=== PATIENT | female | born 1930 | race Caucasian/White ===

== ENCOUNTER 2018-08-03 20:31 | Emergency (ER) | payer OTHER ==
[2018-08-03 20:53] VITALS: BP 141/52; PULSE 70; TEMP 98; BMI 33.6
[2018-08-03] MEDS ORDERED: COLLAGENASE CLOSTRIDIUM HIST. 30 GRAMS TUBE TP ONE (21:59)
--- NOTE | 2018-08-03 22:10 | PDOC ---
History of Present Illness - General Chief Complaint: Wound Stated Complaint: OPEN WOUNDS Time Seen by Provider: 08/03/18 21:38 - History of Present Illness Initial Comments: 08/03/18 22:21 The patient is an 88 year old with a history of HTN, HLD, chronic venous stasis ulcers who presents for a wound dressing change. The patient is accompanied by family who assist in providing the history. They note that the patient is currently followed in wound clinic for chronic left lower extremity venous stasis ulcers. She is currently on levaquin and clindamycin for antibiotic coverage. They report that the patient is supposed to have her dressing changed daily, but due to visiting nurse order issues, the patient has not had a dressing change in 2 days prompting their presentation to the ED for further evaluation. They note that they have a dressing change scheduled for tomorrow. They otherwise deny any fevers, chills, SOB, chest pain, nausea, vomiting, abdominal pain, or changes with urination or bowel movements. Past History - Past Medical History Allergies/Adverse Reactions: Allergies Allergy/AdvReac Type Severity Reaction Status Date / Time acetaminophen Allergy Verified 08/03/18 22:16 [From Darvocet-N 100] cephalexin monohydrate Allergy Verified 08/03/18 22:16 [From Keflet] propoxyphene napsylate Allergy Verified 08/03/18 22:16 [From Darvocet-N 100] vancomycin Allergy Verified 08/03/18 22:16 Home Medications: Ambulatory Orders Cholecalciferol (Vitamin D3) [Vitamin D3 -] 1,000 unit PO DAILY #0 tab 07/02/13 Nifedipine ER [Procardia XL -] 30 mg PO DAILY #0 tab.er.24 07/02/13 Pravastatin Sodium [Pravachol -] 20 mg PO HS #0 tablet 07/02/13 Acetaminophen [Tylenol] 500 mg PO DAILY 05/26/16 Vit A/Vit C/Vit E/Zinc/Copper [Preservision Areds Softgel] 1 each PO DAILY 05/26 Levothyroxine [Synthroid -] 75 mcg PO DAILY@0700 04/09/18 Furosemide [Lasix -] 40 mg PO DAILY 04/16/18 Irbesartan [Avapro (Nf) -] 300 mg PO DAILY 04/16/18 hydrALAZINE HCL [Apresoline -] 25 mg PO TID 04/16/18 Iron 18 mg PO DAILY 04/17/18 Docusate Sodium [Colace -] 100 mg PO TID capsule 04/23/18 Clindamycin [Cleocin -] 300 mg PO TID #21 capsule 07/29/18 Lactobacillus Acidophilus [Bacid -] 1 each PO DAILY #30 capsule 07/29/18 levoFLOXacin [Levaquin -] 250 mg PO DAILY #7 tablet 07/29/18 Anemia: No Asthma: No Cancer: No Cardiac Disorders: No CVA: No COPD: No CHF: No Dementia: No Diabetes: No GI Disorders: No Disorders: No HTN: Yes Hypercholesterolemia: Yes Liver Disease: No Seizures: No Thyroid Disease: Yes - Surgical History Abdominal Surgery: Yes (HERNIA REPAIR umbulical) Appendectomy: No Cardiac Surgery: No Cholecystectomy: Yes Lung Surgery: No Neurologic Surgery: No Orthopedic Surgery: No - Immunization History Immunization Up to Date: Yes - Suicide/Smoking/Psychosocial Hx Smoking Status: No Smoking History: Never smoked Have you smoked in the past 12 months: No Number of Cigarettes Smoked Daily: 0 Information on smoking cessation initiated: No Hx Alcohol Use: No Drug/Substance Use Hx: No Substance Use Type: None Hx Substance Use Treatment: No Review of Systems - Review of Systems Comments:: 08/03/18 22:50 Constitutional: No fevers, chills, fatigue, malaise HEENT: No Rhinorrhea, nasal congestion, visual changes Cardiovascular: No chest pain, syncope, palpitations, lightheadedness Respiratory: No Cough, SOB, Hemoptysis, Gastrointestinal: No Abdominal pain, Nausea, Vomiting, Constipation, Diarrhea, Melena Genitourinary: No Dysuria, Frequency, Urgency, Hesitancy, Hematuria, Flank pain Musculoskeletal: No Myalgia, arthralgia Skin: Left Lower Extremity wound. No rashes, itching, bruising, pallor Neurologic: No Headache, Dizziness, Numbness, Weakness, or Tingling Psychiatric: No Hallucinations. No SI or HI *Physical Exam - Vital Signs Last Vital Signs Temp Pulse Resp BP Pulse Ox 98.0 F 70 16 141/52 L 100 08/03/18 20:50 08/03/18 20:50 08/03/18 20:50 08/03/18 20:50 08/03/18 20:50 - Physical Exam Comments: 08/03/18 22:51 General Appearance: Nourished. No Apparent Distress HEENT: No Pharyngeal Erythema, Tonsillar Exudate, Tonsillar Erythema Neck: No Cervical Lymphadenopathy Respiratory/Chest: Lungs Clear, Normal Breath Sounds. No Crackles, Rales, Rhonchi, Wheezing Cardiovascular: Regular Rhythm, Regular Rate. No Murmur, Gallops, Rubs Gastrointestinal/Abdominal: Normal Bowel Sounds, Soft. No Guarding, Rebound, Tenderness Musculoskeletal: No CVA Tenderness Extremity: 2 well healing left lower extremity venous stasis ulcers. 3+ pitting edema on exam bilaterally. Normal Capillary Refill Integumentary: Normal Color, Dry, Warm Neurologic: Fully Oriented, Alert, Normal Mood/Affect, Normal Response, Medical Decision Making - Medical Decision Making 08/03/18 22:53 The patient is an 88 year old with a history of HTN, HLD, chronic venous stasis ulcers who presents for a wound dressing change. The patient does not appear to have systemic signs of infection and is currently on antibiotics. We changed the patient's dressing with normal saline, santyl, and rosamaria wrap. We are comfortable discharging the patient home with vascular follow up. We discussed the plan and return precautions with the patient and her family who voiced understanding and is agreeable with the plan. *DC/Admit/Observation/Transfer Diagnosis at time of Disposition: Dressing change - Discharge Dispostion Disposition: HOME Condition at time of disposition: Stable Decision to Admit order: No - Referrals Referrals: Edward Guadalupe MD [Primary Care Provider] - Khanh Dougherty MD [Staff Physician] - - Patient Instructions Printed Discharge Instructions: Venous Stasis Ulcer Additional Instructions: Please return to the ER if you experience concerning or worsening symptoms including worsening difficulty breathing, weakness, or chest pain. Please call to schedule a follow up appointment with your Vascular Surgeon within 2-3 days to discuss your ER visit and further management of your symptoms. - Post Discharge Activity
--- NOTE | 2018-08-03 22:29 | PDOC ---
Attending Attestation - Resident Resident Name: Julian Florian - ED Attending Attestation I have performed the following: I have examined & evaluated the patient, The case was reviewed & discussed with the resident, I agree w/resident's findings & plan - Medical Decision Making 08/03/18 22:55 Wounds on the lower leg are healing well. We placed Santyl in the wounds and redressed the wounds. Pt' sexam is normal. VNS will be seeing her tomorrow. Pt is afebrile. Eating and sleeping well. She is alert and awake and in no distress. Pt is stable for discharge. <Patricia Pena - Last Filed: 08/03/18 22:55> - HPI HPI: 08/03/18 22:29 The patient is a 88 year old female, with a significant past medical history of HTN, hypercholesterolemia, thyroid disease, osteoporosis, and vascular insufficiency, who presents to the emergency department for, lower extremity wound dressing change. Patient has chronic wounds on her left lower extremity which she has a visiting nurse come to her come for dressing changes. She notes that for unknown reasoning her visiting nurse has not come in for the past 48 hours. Her wounds are currently being followed up by ID and wound clinic. She has an appointment with Dr. Dougherty tomorrow. She denies recent fevers, chills, headache or dizziness. She denies recent nausea, vomit, diarrhea or constipation. She denies recent dysuria, frequency, urgency or hematuria. She denies recent chest pain or shortness of breath. Allergies: Refer to nursing notes. Surgical History: hernia repair, cholecystectomy. Primary Care Physician: Dr. Guadalupe - Physicial Exam PE: 08/03/18 22:57 GENERAL: Awake, alert, and fully oriented, in no acute distress HEAD: No signs of trauma EYES: PERRLA, EOMI, sclera anicteric, conjunctiva clear ENT: Auricles normal inspection, hearing grossly normal, nares patent, oropharynx clear without exudates. Moist mucosa NECK: Normal ROM, supple, no lymphadenopathy, JVD, or masses LUNGS: Breath sounds equal, clear to auscultation bilaterally. No wheezes, and no crackles HEART: Regular rate and rhythm, normal S1 and S2, no murmurs, rubs or gallops ABDOMEN: Soft, nontender, normoactive bowel sounds. No guarding, no rebound. No masses +EXTREMITIES: 2+ bilateral pitting edema with erythema. Open wound to the left lower extremity medial distal and posterior distal aspects. Normal range of motion. NEUROLOGICAL: Cranial nerves II through XII grossly intact. Normal speech. <Dmitri Fisher - Last Filed: 08/03/18 22:57> Attestations - Attestations 08/03/18 22:29 Documentation prepared by Dmitri Fisher, acting as medical concierge for Patricia Pena MD. <Dmitri Fisher - Last Filed: 08/03/18 22:57>
== END 2018-08-03 23:30 | disposition home or self-care (01) ==
LOC: JER 20:31 → JERFT 20:31 → JER 23:30
DX: I83.019 Varicose veins of right lower extremity with ulcer of unspecified site (principal); Z48.00 Encounter for change or removal of nonsurgical wound dressing; I87.2 Venous insufficiency (chronic) (peripheral); I10 Essential (primary) hypertension; E78.00 Pure hypercholesterolemia, unspecified; E03.9 Hypothyroidism, unspecified
CPT/HCPCS: 99283-25

== ENCOUNTER 2018-11-21 14:23 | Inpatient (IN) | payer OTHER ==
--- NOTE | 2018-11-21 14:34 | PDOC ---
Rapid Medical Evaluation Chief Complaint: Wound Time Seen by Provider: 11/21/18 14:31 Medical Evaluation: Allergies Allergy/AdvReac Type Severity Reaction Status Date / Time acetaminophen Allergy Verified 08/03/18 22:16 [From Darvocet-N 100] cephalexin monohydrate Allergy Verified 08/03/18 22:16 [From Keflet] propoxyphene napsylate Allergy Verified 08/03/18 22:16 [From Darvocet-N 100] vancomycin Allergy Verified 08/03/18 22:16 11/21/18 14:31I have performed a brief in-person evaluation of this patient. The patient presents with a chief complaint of:sent by wound care nurse for fever and wound concerns Pertinent physical exam findings:NAD I have ordered the following:L foot x-rays labs The patient will proceed to the ED for further evaluation.
[2018-11-21 15:21] LABS: VENOUS PC02 31.4 mmHg (38-52); VENOUS PH 7.44 (7.32-7.42)
[2018-11-21 15:24] LABS: BASO % 0.3 % (0-2.0); EOS % 0.8 % (0-4.5); HEMATOCRIT 28.1 % (32.4-45.2); HEMOGLOBIN 9.2 GM/dL (10.7-15.3); LYMPH % 10.6 % (8-40); MCH 26.3 pg (25.7-33.7); MCHC 32.9 g/dl (32.0-36.0); MEAN PLT VOLUME 8.1 fl (7.5-11.1); MONO % 7.1 % (3.8-10.2); NEUT % 81.2 % (42.8-82.8); PLATELET COUNT 325 K/MM3 (134-434); RBC 3.51 M/mm3 (3.60-5.2); RDW 16.2 % (11.6-15.6); WHITE BLOOD COUNT 13.5 K/mm3 (4.0-10.0)
[2018-11-21 15:36] LABS: INR 1.17 (0.83-1.09); PROTHROMBIN TIME (PATIENT) 13.8 SEC (9.7-13.0)
[2018-11-21 15:39] LABS: ACTIVATED PTT 30.3 SECONDS (25.2-36.5)
[2018-11-21 15:51] LABS: ALBUMIN 2.9 g/dl (3.4-5.0); ALK PHOS 93 U/L (45-117); ANION GAP 9 MMOL/L (8-16); BILIRUBIN,TOTAL 0.5 mg/dL (0.2-1); BLOOD UREA NITROGEN 50 mg/dL (7-18); CALCIUM 9.2 mg/dL (8.5-10.1); CHLORIDE 108 mmol/L (98-107); CO2 23 mmol/L (21-32); CREATININE 1.2 mg/dL (0.55-1.3); GLUCOSE,RANDOM 123 mg/dL (74-106); POTASSIUM 3.9 mmol/L (3.5-5.1); SGOT/AST 14 U/L (15-37); SGPT/ALT 16 U/L (13-61); SODIUM 140 mmol/L (136-145); TOT PROT 6.8 g/dl (6.4-8.2)
--- NOTE | 2018-11-21 16:55 | PDOC ---
History of Present Illness - General Chief Complaint: Wound Stated Complaint: TEMP / WOUND CARE Time Seen by Provider: 11/21/18 14:31 - History of Present Illness Initial Comments: Marcela Burrell is an 88y woman with a PMH of HTN, HLD, BLE venous stasis s/p LLE angioplasty and stent with chronic LLE venous stasis ulcers who was sent to the ED by her home nurse due to concern for cellulitis overlying her LLE wounds. Her daughter is at bedside to provide additional information. Per the patient and her daughter, the visiting nurse comes every other day to help with dressing changes. The wounds have had increased drainage recently, and there has been worsening redness surrounding them. Today, the nurse noted a fever to 100.4 and felt that Ms Burrell needed to come to the hospital. They report that Ms Burrell follows with Dr Dougherty for chronic LLE wounds. She has debridement roughly monthly, and she has a visiting nurse every other day to assist with wound care between appointments at wound clinic. She also reports a recent LLE angioplasty and stent placement at [facility]. Ms Burrell has not been on any antibiotics recently, though she was hospitalized for cellulitis in March and treated again in July. Other than the fever today and her chronic conditions, she has been feeling well. Past History - Past Medical History Allergies/Adverse Reactions: Allergies Allergy/AdvReac Type Severity Reaction Status Date / Time acetaminophen Allergy Verified 11/21/18 14:31 [From Darvocet-N 100] cephalexin monohydrate Allergy Verified 11/21/18 14:31 [From Keflet] propoxyphene napsylate Allergy Verified 11/21/18 14:31 [From Darvocet-N 100] vancomycin Allergy Verified 11/21/18 14:31 Home Medications: Ambulatory Orders Cholecalciferol (Vitamin D3) [Vitamin D3 -] 1,000 unit PO DAILY #0 tab 07/02/13 Nifedipine ER [Procardia XL -] 30 mg PO DAILY #0 tab.er.24 07/02/13 Pravastatin Sodium [Pravachol -] 20 mg PO HS #0 tablet 07/02/13 Acetaminophen [Tylenol] 500 mg PO DAILY 05/26/16 Vit A/Vit C/Vit E/Zinc/Copper [Preservision Areds Softgel] 1 each PO DAILY 05/26 Levothyroxine [Synthroid -] 75 mcg PO DAILY@0700 04/09/18 Furosemide [Lasix -] 40 mg PO DAILY 04/16/18 Irbesartan [Avapro (Nf) -] 300 mg PO DAILY 04/16/18 hydrALAZINE HCL [Apresoline -] 25 mg PO TID 04/16/18 Iron 18 mg PO DAILY 04/17/18 Docusate Sodium [Colace -] 100 mg PO TID capsule 04/23/18 Lactobacillus Acidophilus [Bacid -] 1 each PO DAILY #30 capsule 07/29/18 Collagenase Clostridium Hist. [Santyl] 1 applic TP DAILY #90 oint...g. 08/04/18 Ascorbic Acid [Vitamin C -] 500 mg PO DAILY 11/21/18 Aspirin 81 mg PO HS 11/21/18 Anemia: No Asthma: No Cancer: No Cardiac Disorders: No CVA: No COPD: No CHF: No Dementia: No Diabetes: No GI Disorders: No Disorders: No HTN: Yes Hypercholesterolemia: Yes Liver Disease: No Seizures: No Thyroid Disease: Yes - Surgical History Abdominal Surgery: Yes (HERNIA REPAIR umbulical) Appendectomy: No Cardiac Surgery: No Cholecystectomy: Yes Lung Surgery: No Neurologic Surgery: No Orthopedic Surgery: No - Immunization History Immunization Up to Date: Yes - Suicide/Smoking/Psychosocial Hx Smoking Status: No Smoking History: Never smoked Have you smoked in the past 12 months: No Number of Cigarettes Smoked Daily: 0 Information on smoking cessation initiated: No Hx Alcohol Use: No Drug/Substance Use Hx: No Substance Use Type: None Hx Substance Use Treatment: No Review of Systems - Review of Systems Comments:: General: +fever at home today, no weight or appetite change, no malaise HEENT: No changes in vision, no changes in hearing, no congestion, no sore throat CV: No chest pain, no palpitations, no LE edema Pulm: No SOB, no cough, no wheezing GI: No nausea or vomiting, no change in bowel habits, no melena : No frequency, no urgency, no dysuria Musc: No back pain, no joint swelling, no recent injury Skin: No rash, no lesions, no erythema Endo: No excessive thirst, no heat/cold intolerance Heme: No unusual bruising or bleeding, no swollen glands Neuro: No syncope, no numbness/tingling, no focal weakness Vasc: h/o BLE venous stasis, recent LLE angioplasty and stent, chronic LLE wounds Psych: No recent change in mood, no SI or HI *Physical Exam - Vital Signs Last Vital Signs Temp Pulse Resp BP Pulse Ox 98.7 F 82 18 137/51 L 93 L 11/21/18 14:31 11/21/18 14:31 11/21/18 14:31 11/21/18 14:31 11/21/18 14:31 - Physical Exam Comments: General: Comfortable, no acute distress HEENT: PERRL, EOMI, MMM, voice normal, normal neck ROM, no LAD Cards: Irregular, no murmur appreciated Pulm: Comfortable on room air Abd: Soft, nontender, nondistended Ext: Atraumatic. BLE pitting edema. Skin discoloration and thickening on BLE distal to knee c/w chronic venous stasis. LLE with medial and lateral shallow venous stasis ulcers, approx 4x8cm, with yellow fibrinous exudate. Gauze with minimal thin yellow discharge staining. LLE with increased erythema surrounding wound compared to RLE. No fluctuance, no crepitus. B/L feet WWP. Skin: Normal color, no rashes or lesions Neuro: A&Ox3, CN grossly intact, normal speech, motor/sensory grossly intact and symmetric Psych: Mood appropriate to situation Moderate Sedation - Procedure Monitoring Vital Signs: Procedure Monitoring Vital Signs Temperature 98.7 F 11/21/18 14:31 Pulse Rate 82 11/21/18 14:31 Respiratory Rate 18 11/21/18 14:31 Blood Pressure 137/51 L 11/21/18 14:31 O2 Sat by Pulse Oximetry (%) 93 L 11/21/18 14:31 ED Treatment Course - LABORATORY CBC & Chemistry Diagram: 11/21/18 15:03 11/21/18 14:54 - ADDITIONAL ORDERS Additional order review: Laboratory Results 11/21/18 11/21/18 11/21/18 15:03 15:03 15:03 WBC 13.5 H RBC 3.51 L Hgb 9.2 L Hct 28.1 L MCV 80.0 MCH 26.3 MCHC 32.9 RDW 16.2 H Plt Count 325 MPV 8.1 Absolute Neuts (auto) 10.9 H Neutrophils % 81.2 D Lymphocytes % 10.6 D Monocytes % 7.1 Eosinophils % 0.8 D Basophils % 0.3 Nucleated RBC % 0 PT with INR 13.80 H INR 1.17 H PTT (Actin FS) 30.3 VBG pH POC VBG pCO2 POC VBG pO2 Mixed VBG HCO3 Sodium Potassium Chloride Carbon Dioxide Anion Gap BUN Creatinine Creat Clearance w eGFR Random Glucose Lactic Acid 0.9 Calcium Total Bilirubin AST ALT Alkaline Phosphatase Troponin I Total Protein Albumin 11/21/18 11/21/18 14:54 14:54 WBC RBC Hgb Hct MCV MCH MCHC RDW Plt Count MPV Absolute Neuts (auto) Neutrophils % Lymphocytes % Monocytes % Eosinophils % Basophils % Nucleated RBC % PT with INR INR PTT (Actin FS) VBG pH 7.44 H POC VBG pCO2 31.4 L POC VBG pO2 138.0 H Mixed VBG HCO3 21.1 Sodium 140 Potassium 3.9 Chloride 108 H Carbon Dioxide 23 Anion Gap 9 BUN 50 H Creatinine 1.2 Creat Clearance w eGFR 42.40 Random Glucose 123 H Lactic Acid Calcium 9.2 Total Bilirubin 0.5 AST 14 L ALT 16 Alkaline Phosphatase 93 Troponin I < 0.02 Total Protein 6.8 Albumin 2.9 L 11/21/18 15:03 RBC 3.51 L MCV 80.0 MCHC 32.9 RDW 16.2 H MPV 8.1 Neutrophils % 81.2 D Lymphocytes % 10.6 D Monocytes % 7.1 Eosinophils % 0.8 D Basophils % 0.3 Medical Decision Making - Medical Decision Making 11/21/18 16:39 Marcela Valentine is an 88y woman with a PMH of HTN, HLD, BLE venous stasis s/p LLE angioplasty and stent with chronic LLE venous stasis ulcers who was sent to the ED by her home nurse due to concern for cellulitis overlying her LLE wounds. - On exam, BLE skin discoloration and pitting edema c/w venous stasis. LLE wounds w/ fibrinous exudate but no gross purulence, no TTP, no fluctuance or crepitus. LLE with increased erythema compared to RLE - Seen in RME. Labs reviewed, leukocytosis to 13. Xrays pending - Call placed to Dr Dougherty 11/21/18 16:55 - Discussed with both Dr Ortega and Dr Dougherty. Given pt's age, report of fever at home, cellulitis clinically will plan to admit for inpatient management - Will contact team for admission when xrays are completed - EKG completed. NSR with multiple PACs, also noted on EKG from 11/21/18 18:10 - Xrays completed, no obvious acute pathology, no concerning soft tissue involvement noted - Microblog sent to hospitalist team for admission. 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 Reports that she "could not put her foot on the ground." Denies rash or difficulty breathing. However, given reported allergy will give clindamycin instead - Waiting for call back from hospitalist team 11/21/18 19:20 - Accepted to Dr Burks's service. Discussed with Dr Ortega. Krystle Slater PGY1 *DC/Admit/Observation/Transfer Diagnosis at time of Disposition: Cellulitis - Discharge Dispostion Decision to Admit order: Yes - Referrals - Patient Instructions - Post Discharge Activity
--- NOTE | 2018-11-21 16:58 | PDOC ---
Attending Attestation - Resident Resident Name: Krystle Slater - ED Attending Attestation I have performed the following: I have examined & evaluated the patient, The case was reviewed & discussed with the resident, I agree w/resident's findings & plan - HPI HPI: 11/21/18 18:10 The patient is a 88 year old female, with a significant past medical history of HTN, hypercholesterolemia, thyroid disease, osteoporosis, and vascular insufficiency,, who presents to the emergency department with, LLE wound. Patient endorses one episode of a fever Tmax 100.4F. She denies recent headache or dizziness. She denies recent nausea, vomit, diarrhea or constipation. She denies recent dysuria, frequency, urgency or hematuria. She denies recent chest pain or shortness of breath. Allergies: Refer to nursing notes. Surgical History: hernia repair, cholecystectomy. Primary Care Physician: Dr. Guadalupe Vascular: Dr. Dougherty - Physicial Exam PE: 11/21/18 18:10 GENERAL: Awake, alert, and fully oriented, in no acute distress HEAD: No signs of trauma LUNGS: Breath sounds equal, clear to auscultation bilaterally. No wheezes, and no crackles HEART: Regular rate and rhythm, normal S1 and S2, no murmurs, rubs or gallops ABDOMEN: Soft, nontender, normoactive bowel sounds. No guarding, no rebound. No masses EXTREMITIES: Normal range of motion, no edema. No clubbing or cyanosis. No cords, erythema, or tenderness NEUROLOGICAL: Cranial nerves II through XII grossly intact. Normal speech SKIN: 4x8cm LLE chronic wound, weeping in nature with purulent discharge. <Dmitri Fisher - Last Filed: 11/21/18 18:11> - Medical Decision Making 11/21/18 18:20 Pt presents to the ED complaining of worsening of her chronic foot ulcer and fevers at home. Sent in by visiting nurse for evaluation. Afebrile but with elevated WBC count. Will treat with IV antibiotics and admit to medicine. <Iesha Ortega - Last Filed: 11/21/18 18:32> Attestations - Attestations 11/21/18 18:12 Documentation prepared by Dmitri Fisher, acting as infertility medical assistant for Iesha Ortega MD. <Dmitri Fisher - Last Filed: 11/21/18 18:11>
[2018-11-21 17:41] LABS: URINE APPEARANCE CLEAR; URINE BILIRUBIN NEGATIVE (<2.0 mg/dL); URINE COLOR STRAW; URINE GLUCOSE (UA) NEGATIVE (NEGATIVE); URINE KETONE NEGATIVE (NEGATIVE); URINE LEUK ESTERASE NEGATIVE (NEGATIVE); URINE NITRITE NEGATIVE (NEGATIVE); URINE PROTEIN NEGATIVE (NEGATIVE); URINE UROBILINOGEN NEGATIVE mg/dL (0.2-1.0)
[2018-11-21] MEDS ORDERED: CLINDAMYCIN 600MG PREMIX IVPB 600 MG/50 ML BAG IVPB ONE ×2 (18:41→18:50)
--- NOTE | 2018-11-21 19:40 | PN ---
Teaching Attending Note Name of Resident: Libra Romero ATTENDING PHYSICIAN STATEMENT I saw and evaluated the patient. I reviewed the resident's note and discussed the case with the resident. I agree with the resident's findings and plan as documented. SUBJECTIVE: Patient is an 88 year old woman with a PMH of HTN, HLD, MRSA wound infection?, BLE venous stasis s/p LLE angioplasty and stent with chronic LLE venous stasis ulcers. Was sent to the ER by her home nurse due to concern for cellulitis overlying her LLE wounds. Per the patient and her daughter, the visiting nurse comes every other day to help with dressing changes. The wounds have had increased drainage recently, and there has been worsening redness surrounding them. Today, the nurse noted a fever to 100.4. Patient follows with Dr Dougherty for chronic LLE wounds. She has debridement roughly monthly. She recently had LLE angioplasty and stent placement at [facility]. Patient has not been on any antibiotics recently, though she was hospitalized for cellulitis in March and treated again in July. She denies recent headache, dizziness, nausea, vomiting, change in bowel habit, dysuria, frequency, urgency, hematuria, chest pain or shortness of breath. OBJECTIVE: Alert Vital Signs Period Temp Pulse Resp BP Sys/Lorenzo Pulse Ox Last 24 Hr 98.7 F 82 18 137/51 93 HEENT: No Jaundice, eye redness or discharge, PERRLA, EOMI. Normocephalic, atraumatic. External ears are normal and hearing is grossly intact. No nasal discharge. Neck: Supple, nontender. No palpable adenopathy or thyromegaly. No JVD Chest: Good effort. Clear to auscultation and percussion. Heart: Regular. No S3, rub or murmur Abdomen: Not distended, soft, nontender and no HSM. No rebound or guarding. Normoactive bowel sounds. Ext: Peripheral pulses intact. Leg edema. Chronic venous stasis changes with discoloration and thick skin in both legs. Left leg shallow ulcers with yellow discharge. Surrounding erythema, warmth and tenderness. Skin: Warm and dry. No petechiae, rash or ecchymosis. Neuro: Alert. Oriented x3. CN 2-12 grossly intact. Sensation grossly intact in all four extremities and DTR are symmetric. Home Medications Medication Instructions Recorded Cholecalciferol (Vitamin D3) 1,000 unit PO DAILY #0 tab 07/02/13 [Vitamin D3 -] Nifedipine ER [Procardia XL -] 30 mg PO DAILY #0 tab.er.24 07/02/13 Pravastatin Sodium [Pravachol -] 20 mg PO HS #0 tablet 07/02/13 Acetaminophen [Tylenol] 500 mg PO DAILY 05/26/16 Vit A/Vit C/Vit E/Zinc/Copper 1 each PO DAILY 05/26/16 [Preservision Areds Softgel] Levothyroxine [Synthroid -] 75 mcg PO DAILY@0700 04/09/18 Furosemide [Lasix -] 40 mg PO DAILY 04/16/18 Irbesartan [Avapro (Nf) -] 300 mg PO DAILY 04/16/18 hydrALAZINE HCL [Apresoline -] 25 mg PO TID 04/16/18 Iron 18 mg PO DAILY 04/17/18 Docusate Sodium [Colace -] 100 mg PO TID capsule 04/23/18 Lactobacillus Acidophilus [Bacid -] 1 each PO DAILY #30 capsule 07/29/18 Collagenase Clostridium Hist. 1 applic TP DAILY #90 oint...g. 08/04/18 [Santyl] Ascorbic Acid [Vitamin C -] 500 mg PO DAILY 11/21/18 Aspirin 81 mg PO HS 11/21/18 Abnormal Lab Results 11/21/18 11/21/18 11/21/18 14:54 14:54 15:03 WBC 13.5 H RBC 3.51 L Hgb 9.2 L Hct 28.1 L RDW 16.2 H Absolute Neuts (auto) 10.9 H PT with INR INR VBG pH 7.44 H POC VBG pCO2 31.4 L POC VBG pO2 138.0 H Chloride 108 H BUN 50 H Random Glucose 123 H AST 14 L Albumin 2.9 L Ur Specific [place] 11/21/18 11/21/18 15:03 17:00 WBC RBC Hgb Hct RDW Absolute Neuts (auto) PT with INR 13.80 H INR 1.17 H VBG pH POC VBG pCO2 POC VBG pO2 Chloride BUN Random Glucose AST Albumin Ur Specific [place] 1.006 L ASSESSMENT AND PLAN: 1. Infected Chronic Left Leg Wound - Blood cultures sent and wound cultures pending. Based on unconfirmed historical MRSA wound infection, will treat with Zyvox and add Ertapenem pending wound culture. Patient is "allergic" to vancomycin and keflex. CXR shows cardiomegaly and chronic elevated right hemidiaphragm. Continue daily wound care. Consult Wound care service and ID. 2. Hypoalbuminemia - Possibly due to combined effects of malnutrition and inflammation associated with comorbid chronic conditions. Will ensure adequate dietary protein intake and also consult onion farmer. 3. KLEVER - Etiology unclear. Will encourage liberal oral fluid intake to correct any underlying dehydration. Avoid nephrotoxic agents such as NSAIDS, aminoglycosides, contrast dyes and certain Alternative medicine products. 4. Anemia - Likely multifactorial. Will do basic anemia work up including serial stool guaiacs, reticulocyte count and iron studies. 5. Obesity - Will provide patient all the necessary assistance, counseling and positive reinforcement to facilitate weight loss. Consult onion farmer. Check HbA1c. 6. Hypertension - Restart outpatient antihypertensive drugs and revise regimen to ensure smooth [id number] good BP control. Nonpharmacologic measures to control hypertension like weight loss, salt restriction and exercise discussed. 7. DVT prophylaxis - Heparin 5000u sq tid. 8. Advance directives - Full code
--- NOTE | 2018-11-21 20:33 | HP ---
CHIEF COMPLAINT:LLE cellulitis PCP:Dr. Mcnally HISTORY OF PRESENT ILLNESS: 88 y/o female with PMH of HTN, HLD, B/L venous stasis changes, s/p LLE stent and angioplasty (done 6 weeks ago at [facility]) presents to the ED after her nurse noticed increased drainage from LLE wounds today, in addition patient had a low grade fever of 100.4 Patient states that the foot was very painful this morning and she was not even able to put her foot down. her visiting nurse, who comes every other day, noticed that patients foot had more drainage than usual and patient felt warm at home so her daughter called the wound care clinic and was told to bring her in. Of note, she follows with dr baeza every month. ever since the angoioplasty and stenting patient has had some discomfort. she lives with her daughter and and uses a cane to get around. she denies any fevers or chills no sick contacts or recent travel ER course was notable for: (1)vital wnl (2)WBC 13.5 (3)given clindamycin Recent Travel: denies PAST MEDICAL HISTORY: see above PAST SURGICAL HISTORY: hernia surgery; LLE stenting and angioplasty, breast biopsy Social History: Smoking:denies Alcohol:denies Drugs: denies Family History: Allergies acetaminophen [From Darvocet-N 100] Allergy (Verified 11/21/18 14:31) cephalexin monohydrate [From Keflet] Allergy (Verified 11/21/18 14:31) propoxyphene napsylate [From Darvocet-N 100] Allergy (Verified 11/21/18 14:31) vancomycin Allergy (Verified 11/21/18 14:31) HOME MEDICATIONS: Home Medications Medication Instructions Recorded Cholecalciferol (Vitamin D3) 1,000 unit PO DAILY #0 tab 07/02/13 [Vitamin D3 -] Nifedipine ER [Procardia XL -] 30 mg PO DAILY #0 tab.er.24 07/02/13 Pravastatin Sodium [Pravachol -] 20 mg PO HS #0 tablet 07/02/13 Acetaminophen [Tylenol] 500 mg PO DAILY 05/26/16 Vit A/Vit C/Vit E/Zinc/Copper 1 each PO DAILY 05/26/16 [Preservision Areds Softgel] Levothyroxine [Synthroid -] 75 mcg PO DAILY@0700 07/18/18 Furosemide [Lasix -] 40 mg PO DAILY 04/16/18 Irbesartan [Avapro (Nf) -] 300 mg PO DAILY 04/16/18 hydrALAZINE HCL [Apresoline -] 25 mg PO TID 04/16/18 Iron 18 mg PO DAILY 04/17/18 Docusate Sodium [Colace -] 100 mg PO TID capsule 04/23/18 Lactobacillus Acidophilus [Bacid -] 1 each PO DAILY #30 capsule 07/29/18 Collagenase Clostridium Hist. 1 applic TP DAILY #90 oint...g. 08/04/18 [Santyl] Ascorbic Acid [Vitamin C -] 500 mg PO DAILY 11/21/18 Aspirin 81 mg PO HS 11/21/18 REVIEW OF SYSTEMS CONSTITUTIONAL: Absent: fever, chills, diaphoresis, generalized weakness, malaise, loss of appetite, weight change HEENT: Absent: rhinorrhea, nasal congestion, throat pain, throat swelling, difficulty swallowing, mouth swelling, ear pain, eye pain, visual changes CARDIOVASCULAR: Absent: chest pain, syncope, palpitations, irregular heart rate, lightheadedness , peripheral edema RESPIRATORY: Absent: cough, shortness of breath, dyspnea with exertion, orthopnea, wheezing, stridor, hemoptysis GASTROINTESTINAL: Absent: abdominal pain, abdominal distension, nausea, vomiting, diarrhea, constipation, melena, hematochezia GENITOURINARY: Absent: dysuria, frequency, urgency, hesitancy, hematuria, flank pain, genital pain MUSCULOSKELETAL: Present: myalgia Absent: myalgia, arthralgia, joint swelling, back pain, neck pain SKIN: Absent: rash, itching, pallor HEMATOLOGIC/IMMUNOLOGIC: Absent: easy bleeding, easy bruising, lymphadenopathy, frequent infections ENDOCRINE: Absent: unexplained weight gain, unexplained weight loss, heat intolerance, cold intolerance NEUROLOGIC: Absent: headache, focal weakness or paresthesias, dizziness, unsteady gait, seizure, mental status changes, bladder or bowel incontinence PSYCHIATRIC: Absent: anxiety, depression, suicidal or homicidal ideation, hallucinations. PHYSICAL EXAMINATION Vital Signs - 24 hr 11/21/18 14:31 Temperature 98.7 F Pulse Rate 82 Respiratory 18 Rate Blood Pressure 137/51 L O2 Sat by Pulse 93 L Oximetry (%) GENERAL: Awake, alert, and fully oriented, in no acute distress. EYES: EOMI; no scleral icterus; NECK: no JVD; no lymphadenopathy LUNGS: CTA B/L; no rales, rhonchi or wheezing HEART: Regular rate and rhythm, normal S1 and S2 without murmur, rub or gallop. ABDOMEN: Soft, nontender, not distended, normoactive bowel sounds, no guarding, no rebound, no masses. No hepatomegaly or splenomegaly. MUSCULOSKELETAL: Normal range of motion at all joints. No bony deformities or tenderness. No CVA tenderness. EXTREMITIES: chronic venous stasis changes B/L with pitting edema B/L; LLE slightly erythematous, warm to touch, with slight drainage (especially at left lower lateral portion of heel) PSYCHIATRIC: Cooperative. Good eye contact. Appropriate mood and affect. SKIN: Warm, dry, normal turgor, no rashes or lesions noted, normal capillary refill. Laboratory Results - last 24 hr 11/21/18 11/21/18 11/21/18 14:54 14:54 15:03 WBC 13.5 H RBC 3.51 L Hgb 9.2 L Hct 28.1 L MCV 80.0 MCH 26.3 MCHC 32.9 RDW 16.2 H Plt Count 325 MPV 8.1 Absolute Neuts (auto) 10.9 H Neutrophils % 81.2 D Lymphocytes % 10.6 D Monocytes % 7.1 Eosinophils % 0.8 D Basophils % 0.3 Nucleated RBC % 0 PT with INR INR PTT (Actin FS) VBG pH 7.44 H POC VBG pCO2 31.4 L POC VBG pO2 138.0 H Mixed VBG HCO3 21.1 Sodium 140 Potassium 3.9 Chloride 108 H Carbon Dioxide 23 Anion Gap 9 BUN 50 H Creatinine 1.2 Creat Clearance w eGFR 42.40 Random Glucose 123 H Lactic Acid Calcium 9.2 Total Bilirubin 0.5 AST 14 L ALT 16 Alkaline Phosphatase 93 Troponin I < 0.02 Total Protein 6.8 Albumin 2.9 L Urine Color Urine Appearance Urine pH Ur Specific [place] Urine Protein Urine Glucose (UA) Urine Ketones Urine Blood Urine Nitrite Urine Bilirubin Urine Urobilinogen Ur Leukocyte Esterase 11/21/18 11/21/18 11/21/18 15:03 15:03 17:00 WBC RBC Hgb Hct MCV MCH MCHC RDW Plt Count MPV Absolute Neuts (auto) Neutrophils % Lymphocytes % Monocytes % Eosinophils % Basophils % Nucleated RBC % PT with INR 13.80 H INR 1.17 H PTT (Actin FS) 30.3 VBG pH POC VBG pCO2 POC VBG pO2 Mixed VBG HCO3 Sodium Potassium Chloride Carbon Dioxide Anion Gap BUN Creatinine Creat Clearance w eGFR Random Glucose Lactic Acid 0.9 Calcium Total Bilirubin AST ALT Alkaline Phosphatase Troponin I Total Protein Albumin Urine Color Straw Urine Appearance Clear Urine pH 5.0 Ur Specific [place] 1.006 L Urine Protein Negative Urine Glucose (UA) Negative Urine Ketones Negative Urine Blood Negative Urine Nitrite Negative Urine Bilirubin Negative Urine Urobilinogen Negative Ur Leukocyte Esterase Negative ASSESSMENT/PLAN: 88 y/o female with PMH of HTN., HLD, B/L venous stasis changes , s/p LLE stenting and angioplasty 6 weeks ago at [facility] presents to the ED with increased drainage and low grade fever at home. #LLE cellulitis patient has allergies to vancomycin and cephlex -linezolid 600 BID and ertapenem 1gram daily -wound cx pending -Dr. 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 Code(s): D50.0 - Iron deficiency anemia secondary to blood loss (chronic) (3) Chronic ulcer of ankle Code(s): L97.309 - NON-PRESSURE CHRONIC ULCER OF UNSP ANKLE WITH UNSP SEVERITY Qualifiers: (4) HTN (hypertension) Code(s): I10 - ESSENTIAL (PRIMARY) HYPERTENSION Qualifiers: Hypertension type: essential hypertension Qualified Code(s): I10 - Essential (primary) hypertension Visit type - Emergency Visit Emergency Visit: Yes ED Registration Date: 11/21/18 Care time: The patient presented to the Emergency Department on the above date and was hospitalized for further evaluation of their emergent condition. - New Patient This patient is new to me today: Yes Date on this admission: 11/21/18 - Critical Care Critical Care patient: No
[2018-11-21] MEDS ORDERED: LINEZOLID 600 MG PREMIX BAG 600 MG/300 ML BAG IVPB ONE (21:00)
[2018-11-21] MEDS: ERTAPENEM SODIUM 1 GM in SODIUM CHLORIDE 50 ML IVPB SCH (21:46)
[2018-11-21] MEDS: HEPARIN NA (PORCINE) 5,000 UNITS/ML 1ML VIAL SQ SCH (22:08)
[2018-11-21] MEDS: hydrALAZINE HCL 25 MG TABLET (FP) PO SCH (22:08)
[2018-11-21] MEDS: ASPIRIN 81 MG CHEWABLE TABLETS PO SCH (22:08)
[2018-11-21] MEDS: DOCUSATE SODIUM 100 MG CAPSULE (FP) PO SCH (22:08)
[2018-11-21] MEDS: ATORVASTATIN CA 10 MG TABLET (FP) PO SCH (22:08)
[2018-11-21] MEDS ORDERED: ASPIRIN COATED 81 MG TABLET.EC ONE (22:12)
[2018-11-21] MEDS ORDERED: hydrALAZINE HCL 25 MG TABLET (FP) ONE (22:12)
[2018-11-21] MEDS ORDERED: ATORVASTATIN CA 10 MG TABLET (FP) ONE (22:12)
[2018-11-21] MEDS ORDERED: DOCUSATE SODIUM 100 MG CAPSULE (FP) PO ONE (22:12)
[2018-11-22] MEDS: ACETAMINOPHEN 500 MG TABLET (FP) PO PRN ×2 (01:32→11:35)
[2018-11-22 01:56] VITALS: BMI 33.1
[2018-11-22] MEDS: DOCUSATE SODIUM 100 MG CAPSULE (FP) PO SCH ×3 (05:45→21:46)
[2018-11-22] MEDS: HEPARIN NA (PORCINE) 5,000 UNITS/ML 1ML VIAL SQ SCH ×3 (05:45→21:46)
[2018-11-22] MEDS: LEVOTHYROXINE NA 75 MCG TABLET (FP) PO SCH (06:08)
[2018-11-22] MEDS: hydrALAZINE HCL 25 MG TABLET (FP) PO SCH ×4 (06:08→21:46)
--- NOTE | 2018-11-22 08:26 | PN ---
Progress Note, Physician Chief Complaint: No new complaints History of Present Illness: 88 y/o female with PMH of HTN, HLD, B/L venous stasis changes, s/p LLE stent and angioplasty (done 6 weeks ago at [facility]) presents to the ED after her nurse noticed increased drainage from LLE wounds - Current Medication List Current Medications: Active Medications Acetaminophen (Tylenol -) 500 mg PO Q6H PRN PRN Reason: PAIN LEVEL 1-5 Last Admin: 11/22/18 01:32 Dose: 500 mg Ascorbic Acid (Vitamin C -) 500 mg PO DAILY [facility] Aspirin (Asa -) 81 mg PO HS JUN Last Admin: 11/21/18 22:08 Dose: 81 mg Atorvastatin Calcium (Lipitor -) 10 mg PO HS [facility] Last Admin: 11/21/18 22:08 Dose: 10 mg Cholecalciferol (Vitamin D3 -) 1,000 unit PO DAILY JUN Collagenase (Santyl -) 1 applic TP DAILY [facility]; Protocol Docusate Sodium (Colace -) 100 mg PO TID [facility] Last Admin: 11/22/18 05:45 Dose: Not Given Ferrous Sulfate (Feosol -) 325 mg PO DAILY [facility] Furosemide (Lasix -) 40 mg PO DAILY [facility] Heparin Sodium (Porcine) (Heparin -) 5,000 unit SQ TID [facility] Last Admin: 11/22/18 05:45 Dose: Not Given Hydralazine HCl (Apresoline -) 25 mg PO TID [facility] Last Admin: 11/22/18 06:08 Dose: Not Given Linezolid (Zyvox 600 Mg Premix Bag (Restricted To Id) -) 600 mg in 300 mls @ 300 mls/hr IVPB Q12H [facility]; Protocol Ertapenem 1 gm/ Sodium (Chloride) 50 mls @ 100 mls/hr IVPB DAILY [facility] Last Admin: 11/21/18 21:46 Dose: 100 mls/hr Levothyroxine Sodium (Synthroid -) 75 mcg PO DAILY@0700 [facility] Last Admin: 11/22/18 06:08 Dose: 75 mcg Losartan Potassium (Cozaar -) 100 mg PO DAILY JUN Nifedipine (Procardia Xl -) 30 mg PO DAILY [facility] - Objective Vital Signs: Vital Signs Temperature 97.9 F 11/22/18 05:55 Pulse Rate 57 L 11/22/18 05:55 Respiratory Rate 18 11/22/18 05:55 Blood Pressure 117/51 L 11/22/18 05:55 O2 Sat by Pulse Oximetry (%) 95 11/21/18 23:35 General: Well Nourished, No Distress HEENT: Atraumatic, Normocephalic, EOM Intact Neck: Supple, Trachea Midline. No: Decreased ROM, Lymphadenopathy Respiratory: Regular, Bilaterally crepts at bases Cardiovascular: Pulse Irregular, S1, S2, no m/g/r Gastrointestinal: Normal Bowel Sounds, Soft, Abdomen, Obese Musculoskeletal: No: Back Pain, Joint Stiffness, Peripheral Pulses: Left Doralis Pedis: 1+, Right Dorsalis Pedis: 1+, No edema Neurological: Alert, Oriented, Cran Nerves II-XII Intact, Motor Strength: WNL, LUE, LLE, RUE, RLE DERM: Left LE infected ulcers with exudate Labs: CBC, BMP 11/21/18 15:03 11/21/18 14:54 INR, PTT INR 1.17 (0.83-1.09) H 11/21/18 15:03 Problem List - Problems (1) Cellulitis Assessment/Plan: Left LE Cellulitis recently had surgery elevated TWBC on IV Ertapenam and Linezolid, F/u Culture and ID recommendation, PO Tylenol for fever Code(s): L03.90 - CELLULITIS, UNSPECIFIED Qualifiers: Site of cellulitis of extremity: lower extremity (2) HTN (hypertension) Assessment/Plan: Cont all home meds Code(s): I10 - ESSENTIAL (PRIMARY) HYPERTENSION Qualifiers: Hypertension type: essential hypertension Qualified Code(s): I10 - Essential (primary) hypertension (3) Hypothyroid Assessment/Plan: cont Levothyroxine F/U TSH as out patient Code(s): E03.9 - HYPOTHYROIDISM, UNSPECIFIED (4) Hyperlipidemia Assessment/Plan: Cont statin Code(s): E78.5 - HYPERLIPIDEMIA, UNSPECIFIED (5) Venous stasis Assessment/Plan: Chronic some drop in H/H most likely dilution F/U CBC Code(s): I87.8 - OTHER SPECIFIED DISORDERS OF VEINS (6) Anemia Code(s): D64.9 - ANEMIA, UNSPECIFIED
[2018-11-22 08:35] LABS: BASO % 0.5 % (0-2.0); EOS % 3.9 % (0-4.5); HEMATOCRIT 23.2 % (32.4-45.2); HEMOGLOBIN 7.7 GM/dL (10.7-15.3); LYMPH % 27.7 % (8-40); MCH 26.3 pg (25.7-33.7); MCHC 33.2 g/dl (32.0-36.0); MEAN CELL VOLUME 79.3 fl (80-96); MEAN PLT VOLUME 7.8 fl (7.5-11.1); MONO % 8.9 % (3.8-10.2); PLATELET COUNT 259 K/MM3 (134-434); RBC 2.92 M/mm3 (3.60-5.2); RDW 16.7 % (11.6-15.6); WHITE BLOOD COUNT 6.8 K/mm3 (4.0-10.0)
[2018-11-22 09:14] LABS: ALBUMIN 2.3 g/dl (3.4-5.0); ALK PHOS 71 U/L (45-117); ANION GAP 7 MMOL/L (8-16); BILIRUBIN,TOTAL 0.5 mg/dL (0.2-1); BLOOD UREA NITROGEN 40 mg/dL (7-18); CHLORIDE 111 mmol/L (98-107); CO2 24 mmol/L (21-32); CREATININE 1.2 mg/dL (0.55-1.3); GLUCOSE,RANDOM 89 mg/dL (74-106); MAGNESIUM 1.9 mg/dL (1.8-2.4); PHOSPHOROUS 3.3 mg/dL (2.5-4.9); POTASSIUM 4.1 mmol/L (3.5-5.1); SGOT/AST 7 U/L (15-37); SGPT/ALT 11 U/L (13-61); SODIUM 142 mmol/L (136-145); TOT PROT 5.7 g/dl (6.4-8.2)
[2018-11-22] MEDS: ERTAPENEM SODIUM 1 GM in SODIUM CHLORIDE 50 ML IVPB SCH (09:34)
[2018-11-22] MEDS: CHOLECALCIFEROL (VITAMIN D3) 1,000 UNIT TABLET (FP) PO SCH (09:35)
[2018-11-22] MEDS: FERROUS SO4 325 MG TABLET (FP) PO SCH ×2 (09:35→09:45)
[2018-11-22] MEDS: COLLAGENASE CLOSTRIDIUM HIST. 30 GRAMS TUBE TP SCH (09:35)
[2018-11-22] MEDS: FUROSEMIDE 40 MG TABLET (FP) PO SCH ×2 (09:35→09:45)
[2018-11-22] MEDS: NIFEdipine E.R. 30 MG TABLET (FP) PO SCH (09:35)
[2018-11-22] MEDS: LOSARTAN POTASSIUM 50 MG TABLET (FP) PO SCH (09:35)
[2018-11-22] MEDS: ASCORBIC ACID 500 MG TABLET (FP) PO SCH (09:35)
--- NOTE | 2018-11-22 10:31 | CONSULT ---
Consult - History of Present Illness History of Present Illness: 88 year old woman with chronic venous stasis of both legs and large ulcers on left lower leg. 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 Wounds noted to have increased drainage yesterday and patient came to ER. She had low grade fever at home. - Past Medical History Cardio/Vascular: Yes: HTN, Hyperlipdemia, Other (PVD, chronic venous stasis) Renal/: Yes: Renal Inusuff ...: No Infectious Disease: Yes: MRSA Musculoskeletal: Yes: Other (Osteoporosis) - Past Surgical History Past Surgical History: Yes: Cholecystectomy, Hernia Repair (ventral hernia x 2 with revision) - Alcohol/Substance Use Hx Alcohol Use: No History of Substance Use: reports: None - Smoking History Smoking history: Never smoked Have you smoked in the past 12 months: No Aproximately how many cigarettes per day: 0 - Social History Usual Living Arrangement: With Spouse ADL: Family Assistance History of Recent Travel: No Home Medications - Allergies Allergies/Adverse Reactions: Allergies Allergy/AdvReac Type Severity Reaction Status Date / Time acetaminophen Allergy Verified 11/21/18 14:31 [From Darvocet-N 100] cephalexin monohydrate Allergy Verified 11/21/18 14:31 [From Keflet] propoxyphene napsylate Allergy Verified 11/21/18 14:31 [From Darvocet-N 100] vancomycin Allergy Verified 11/21/18 14:31 - Home Medications Home Medications: Ambulatory Orders Cholecalciferol (Vitamin D3) [Vitamin D3 -] 1,000 unit PO DAILY #0 tab 07/02/13 Nifedipine ER [Procardia XL -] 30 mg PO DAILY #0 tab.er.24 07/02/13 Pravastatin Sodium [Pravachol -] 20 mg PO HS #0 tablet 07/02/13 Acetaminophen [Tylenol] 500 mg PO DAILY 05/26/16 Vit A/Vit C/Vit E/Zinc/Copper [Preservision Areds Softgel] 1 each PO DAILY 05/26 Levothyroxine [Synthroid -] 75 mcg PO DAILY@0700 04/09/18 Furosemide [Lasix -] 40 mg PO DAILY 04/16/18 Irbesartan [Avapro (Nf) -] 300 mg PO DAILY 04/16/18 hydrALAZINE HCL [Apresoline -] 25 mg PO TID 04/16/18 Iron 18 mg PO DAILY 04/17/18 Docusate Sodium [Colace -] 100 mg PO TID capsule 04/23/18 Lactobacillus Acidophilus [Bacid -] 1 each PO DAILY #30 capsule 07/29/18 Collagenase Clostridium Hist. [Santyl] 1 applic TP DAILY #90 oint...g. 08/04/18 Ascorbic Acid [Vitamin C -] 500 mg PO DAILY 11/21/18 Aspirin 81 mg PO HS 11/21/18 Physical Exam Vital Signs: Vital Signs Temperature 97.9 F 11/22/18 05:55 Pulse Rate 57 L 11/22/18 05:55 Respiratory Rate 18 11/22/18 05:55 Blood Pressure 117/51 L 11/22/18 05:55 O2 Sat by Pulse Oximetry (%) 95 11/21/18 23:35 Constitutional: Yes: No Distress Extremities: Yes: Other (Bialteral brawny edema with open wounds of left medial and lateral malleoli with granulation and exudate. No cellulitis. Feet warm) Edema: Yes Edema: LLE: 3+, RLE: 2+ Labs: CBC, BMP 11/22/18 07:30 11/22/18 07:30 Problem List - Problems (1) Venous stasis ulcer of left lower extremity Assessment/Plan: Chronic venous wounds which have not improved with wound care, compression and venous stenting. Will encourage leg elevation and compression wraps. Compliance at home is questionable. Venous Duplex to assess iliac stent for patency Code(s): I83.029 - VARICOSE VEINS OF LEFT LOWER EXTREMITY W ULCER OF UNSP SITE; L97.929 - NON-PRS CHRONIC ULC UNSP PRT OF L LOW LEG W UNSP SEVERITY
--- NOTE | 2018-11-22 14:26 | PN ---
Progress Note (short form) - Note Progress Note: ID consult to follow unable to examine legs as dressings just done by vascular will return in am continue ertapenem/linezolid based on prior wound culture results multiple antiibiotic allergies
[2018-11-22] MEDS: LINEZOLID 600 MG PREMIX BAG 600 MG/300 ML BAG IVPB SCH ×2 (14:30→17:01)
[2018-11-22 15:32] LABS: BASO % 0.9 % (0-2.0); EOS % 4.5 % (0-4.5); HEMATOCRIT 24.6 % (32.4-45.2); HEMOGLOBIN 8.1 GM/dL (10.7-15.3); LYMPH % 26.8 % (8-40); MCH 26.7 pg (25.7-33.7); MCHC 33.1 g/dl (32.0-36.0); MEAN CELL VOLUME 80.7 fl (80-96); MEAN PLT VOLUME 7.8 fl (7.5-11.1); MONO % 8.2 % (3.8-10.2); NEUT % 59.6 % (42.8-82.8); PLATELET COUNT 272 K/MM3 (134-434); RBC 3.04 M/mm3 (3.60-5.2); RDW 16.7 % (11.6-15.6); WHITE BLOOD COUNT 7.6 K/mm3 (4.0-10.0)
[2018-11-22] MEDS: ASPIRIN 81 MG CHEWABLE TABLETS PO SCH (21:46)
[2018-11-22] MEDS: ATORVASTATIN CA 10 MG TABLET (FP) PO SCH (21:47)
[2018-11-23] MEDS: LINEZOLID 600 MG PREMIX BAG 600 MG/300 ML BAG IVPB SCH ×2 (03:17→15:37)
[2018-11-23 04:09] LABS: SERUM IRON SATURATION 11 % (15-55); TOTAL IRON BINDING CAPACITY 212 ug/dL (250-450); UIBC 188 ug/dL (118-369)
[2018-11-23] MEDS: HEPARIN NA (PORCINE) 5,000 UNITS/ML 1ML VIAL SQ SCH ×3 (06:09→23:02)
[2018-11-23] MEDS: LEVOTHYROXINE NA 75 MCG TABLET (FP) PO SCH (06:09)
[2018-11-23] MEDS: hydrALAZINE HCL 25 MG TABLET (FP) PO SCH ×3 (06:10→23:02)
[2018-11-23] MEDS: DOCUSATE SODIUM 100 MG CAPSULE (FP) PO SCH ×3 (06:10→23:01)
[2018-11-23 07:37] LABS: BASO % 0.7 % (0-2.0); EOS % 5.7 % (0-4.5); HEMATOCRIT 25.5 % (32.4-45.2); HEMOGLOBIN 8.3 GM/dL (10.7-15.3); MCH 26.3 pg (25.7-33.7); MCHC 32.7 g/dl (32.0-36.0); MEAN CELL VOLUME 80.3 fl (80-96); MEAN PLT VOLUME 8.2 fl (7.5-11.1); MONO % 7.2 % (3.8-10.2); NEUT % 54.4 % (42.8-82.8); PLATELET COUNT 275 K/MM3 (134-434); RBC 3.17 M/mm3 (3.60-5.2); RDW 16.4 % (11.6-15.6); WHITE BLOOD COUNT 7.2 K/mm3 (4.0-10.0)
[2018-11-23 08:03] LABS: ANION GAP 6 MMOL/L (8-16); BLOOD UREA NITROGEN 36 mg/dL (7-18); CALCIUM 8.7 mg/dL (8.5-10.1); CHLORIDE 107 mmol/L (98-107); CO2 24 mmol/L (21-32); CREATININE 1.2 mg/dL (0.55-1.3); GLUCOSE,RANDOM 86 mg/dL (74-106); POTASSIUM 4.6 mmol/L (3.5-5.1); SODIUM 138 mmol/L (136-145)
[2018-11-23] MEDS: ERTAPENEM SODIUM 1 GM in SODIUM CHLORIDE 50 ML IVPB SCH (09:37)
[2018-11-23] MEDS: ASCORBIC ACID 500 MG TABLET (FP) PO SCH (09:37)
[2018-11-23] MEDS: NIFEdipine E.R. 30 MG TABLET (FP) PO SCH (09:37)
[2018-11-23] MEDS: COLLAGENASE CLOSTRIDIUM HIST. 30 GRAMS TUBE TP SCH (09:37)
[2018-11-23] MEDS: FUROSEMIDE 40 MG TABLET (FP) PO SCH (09:37)
[2018-11-23] MEDS: LOSARTAN POTASSIUM 50 MG TABLET (FP) PO SCH (09:37)
[2018-11-23] MEDS: CHOLECALCIFEROL (VITAMIN D3) 1,000 UNIT TABLET (FP) PO SCH (09:37)
[2018-11-23] MEDS: FERROUS SO4 325 MG TABLET (FP) PO SCH (09:37)
--- NOTE | 2018-11-23 13:33 | PN ---
Progress Note (short form) - Note Progress Note: ID consult dictated today she feels well no complaints Vital Signs Period Temp Pulse Resp BP Sys/Lorenzo Pulse Ox Last 24 Hr 97.3 F-98.1 F 56-58 18-18 123-141/55-65 98 dressings removed LLE no drainage RLE ulcers are clean +drainage no associated erythema or induration +DP pulse CBC, BMP 11/23/18 06:45 11/23/18 06:45 Microbiology 11/22/18 10:15 Cellulitis Wound Culture - Preliminary Pending Organism Pending Organism#2 Pending Organism#3 Pending Organism#4 11/21/18 14:54 Blood - Peripheral Venous Blood Culture - Preliminary NO GROWTH OBTAINED AFTER 24 HOURS, INCUBATION TO CONTINUE FOR 4 DAYS. 11/21/18 15:03 Blood - Peripheral Venous Blood Culture - Preliminary NO GROWTH OBTAINED AFTER 24 HOURS, INCUBATION TO CONTINUE FOR 4 DAYS. a/p legs look good with minimal erythema if blood cultures are negative in am suspect she can be discharged with wound care no need to continue antibioitcs continue ertapenem/linezolid pending final blood culture results in am multiple antiibiotic allergies noted s/p LLE angioplasty, stent in September 2018
[2018-11-23] MEDS: ACETAMINOPHEN 500 MG TABLET (FP) PO PRN ×2 (13:52→23:02)
--- NOTE | 2018-11-23 14:06 | PN ---
Progress Note, Physician Chief Complaint: No new complaints, remained afebrile History of Present Illness: 88 y/o female with PMH of HTN, HLD, B/L venous stasis changes, s/p LLE stent and angioplasty (done 6 weeks ago at [facility]) presents to the ED after her nurse noticed increased drainage from LLE wounds - Current Medication List Current Medications: Active Medications Acetaminophen (Tylenol -) 500 mg PO Q6H PRN PRN Reason: PAIN LEVEL 1-5 Last Admin: 11/23/18 13:52 Dose: 500 mg Ascorbic Acid (Vitamin C -) 500 mg PO DAILY [facility] Last Admin: 11/23/18 09:37 Dose: 500 mg Aspirin (Asa -) 81 mg PO HS [facility] Last Admin: 11/22/18 21:46 Dose: 81 mg Atorvastatin Calcium (Lipitor -) 10 mg PO HS [facility] Last Admin: 11/22/18 21:47 Dose: 10 mg Cholecalciferol (Vitamin D3 -) 1,000 unit PO DAILY [facility] Last Admin: 11/23/18 09:37 Dose: 1,000 unit Collagenase (Santyl -) 1 applic TP DAILY [facility]; Protocol Last Admin: 11/23/18 09:37 Dose: 1 applic Docusate Sodium (Colace -) 100 mg PO TID [facility] Last Admin: 11/23/18 13:52 Dose: 100 mg Ferrous Sulfate (Feosol -) 325 mg PO DAILY [facility] Last Admin: 11/23/18 09:37 Dose: 325 mg Furosemide (Lasix -) 40 mg PO DAILY [facility] Last Admin: 11/23/18 09:37 Dose: 40 mg Heparin Sodium (Porcine) (Heparin -) 5,000 unit SQ TID JUN Last Admin: 11/23/18 13:52 Dose: 5,000 unit Hydralazine HCl (Apresoline -) 25 mg PO TID [facility] Last Admin: 11/23/18 13:52 Dose: 25 mg Ertapenem 1 gm/ Sodium (Chloride) 50 mls @ 100 mls/hr IVPB DAILY [facility] Last Admin: 11/23/18 09:37 Dose: 100 mls/hr Linezolid (Zyvox 600 Mg Premix Bag (Restricted To Id) -) 600 mg in 300 mls @ 300 mls/hr IVPB Q12H [facility]; Protocol Last Admin: 11/23/18 03:17 Dose: 300 mls/hr Levothyroxine Sodium (Synthroid -) 75 mcg PO DAILY@0700 [facility] Last Admin: 11/23/18 06:09 Dose: 75 mcg Losartan Potassium (Cozaar -) 100 mg PO DAILY [facility] Last Admin: 11/23/18 09:37 Dose: 100 mg Nifedipine (Procardia Xl -) 30 mg PO DAILY [facility] Last Admin: 11/23/18 09:37 Dose: 30 mg - Objective Vital Signs: Vital Signs Temperature 97.9 F 11/23/18 10:00 Pulse Rate 57 L 11/23/18 10:00 Respiratory Rate 18 11/23/18 10:00 Blood Pressure 141/65 11/23/18 10:00 O2 Sat by Pulse Oximetry (%) 98 11/22/18 21:00 General: Well Nourished, No Distress HEENT: Atraumatic, Normocephalic, EOM Intact Neck: Supple, Trachea Midline. No: Decreased ROM, Lymphadenopathy Respiratory: Regular, Bilaterally crepts at bases Cardiovascular: Pulse Irregular, S1, S2, no m/g/r Gastrointestinal: Normal Bowel Sounds, Soft, Abdomen, Obese Musculoskeletal: No: Back Pain, Joint Stiffness, Peripheral Pulses: Left Doralis Pedis: 1+, Right Dorsalis Pedis: 1+, No edema Neurological: Alert, Oriented, Cran Nerves II-XII Intact, Motor Strength: WNL, LUE, LLE, RUE, RLE DERM: Left LE infected ulcers with exudate Labs: CBC, BMP 11/23/18 06:45 11/23/18 06:45 INR, PTT INR 1.17 (0.83-1.09) H 11/21/18 15:03 Problem List - Problems (1) Cellulitis Assessment/Plan: Left LE Cellulitis recently had surgery elevated TWBC on IV Ertapenam and Linezolid, F/u Culture and ID recommendation, PO Tylenol for fever Code(s): L03.90 - CELLULITIS, UNSPECIFIED Qualifiers: Site of cellulitis of extremity: lower extremity (2) HTN (hypertension) Assessment/Plan: Cont all home meds Code(s): I10 - ESSENTIAL (PRIMARY) HYPERTENSION Qualifiers: Hypertension type: essential hypertension Qualified Code(s): I10 - Essential (primary) hypertension (3) Hypothyroid Assessment/Plan: cont Levothyroxine F/U TSH as out patient Code(s): E03.9 - HYPOTHYROIDISM, UNSPECIFIED (4) Hyperlipidemia Assessment/Plan: Cont statin Code(s): E78.5 - HYPERLIPIDEMIA, UNSPECIFIED (5) Venous stasis Assessment/Plan: Chronic some drop in H/H most likely dilution F/U CBC Code(s): I87.8 - OTHER SPECIFIED DISORDERS OF VEINS (6) Anemia Assessment/Plan: Chronic H/H are stable Code(s): D64.9 - ANEMIA, UNSPECIFIED
--- NOTE | 2018-11-23 20:19 | CONS ---
DATE OF CONSULTATION: 11/23/2018 This is an 88-year-old woman, who I have met in Wound Care before. 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 Dougherty. She had in the past refused any kind of vascular intervention on her foot and she has had recurrent cellulitis. In September, she finally underwent left lower extremity angioplasty and stent placement of the leg. She was sent by her visiting nurse to the emergency room with a fever of 100.4 and increased erythema of the leg. I could not see the foot yesterday, as Dr. Dougherty had just come and done the dressings and his evaluation of the legs was that they appeared relatively clean and there was no acute infection. I returned today because she was to do daily dressing changes in order to examine the legs. She has no complaints and feels well. Her past medical history is notable for hypertension, hyperlipidemia, peripheral vascular disease, chronic venous stasis, renal insufficiency, osteoporosis. She has a history of cholecystectomy, hernia repair, ventral hernia with 2 revisions, and a recent angioplasty and stent of the left lower leg. 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 She has multiple antibiotic allergies, including CEPHALEXIN and VANCOMYCIN. She is allergic to PROPOXYPHENE and ACETAMINOPHEN as well. Her medications at home include hydralazine, pravastatin, nifedipine, Synthroid, lactobacillus, Avapro, Lasix, Colace, Santyl, vitamin D, aspirin, vitamin C, and Tylenol. She is also on PreserVision vitamins. SOCIAL HISTORY: She is . She lives at home. There is no history of cigarette, alcohol, or substance use. REVIEW OF SYSTEMS: She denies diarrhea. Of note, she does not like keeping her legs wrapped the way that they are currently wrapped, which is with a tight Jose De Jesus bandage. PHYSICAL EXAMINATION: Vital Signs: She is afebrile. She has been afebrile since she arrived at the hospital. Temperature is 97.9. Pulse of 57. Blood pressure 141/65. Respiratory rate 18. General: She is a very pleasant elderly woman in no acute distress. HEENT: Normocephalic. Her eyes are anicteric. Neck: Supple. Lungs: Clear to auscultation. Heart: Regular rate and rhythm. Abdomen: Soft, nontender. Extremities: She has a good pulse in the left leg. Her dressings were removed from both legs. There are no lesions at all on the right. The left side, she has a large open area. There is no surrounding erythema or induration. She has venous stasis changes and she does have some serous drainage from the site. Labs are notable for a white count of 7.2, hemoglobin 8.3, platelets 275. Chemistries: BUN 36, creatinine 1.2. Urinalysis is negative. Blood cultures are pending. Wound culture was sent that shows Gram stain is negative for organisms or polys and she has multiple organisms growing. She had a duplex of her leg that was negative for DVT. In summary, she is an 88-year-old woman with chronic venous stasis of her legs, with a large ulcer on her left lower extremity that appears improved. There is no evidence of active infection at this time. I would suggest we follow up her blood cultures in the morning and she is currently on linezolid and ertapenem. If her blood cultures are negative, I would recommend stopping her antibiotics. She has multiple antibiotic allergies. Given the Gram stain findings and the current appearance of the leg, I do not suspect they are infected, I suspect she has had poor compliance to the wound care instructions per Dr. Dougherty, as she appears to dislike having her legs wrapped. Number 2, peripheral vascular disease, status post left lower extremity angioplasty and stent in 2019. Number 3, multiple antibiotic allergies noted, CEPHALOSPORINS as well as VANCOMYCIN. ANGELA LUTZ M.D. [id number]
[2018-11-23] MEDS: ATORVASTATIN CA 10 MG TABLET (FP) PO SCH (23:02)
[2018-11-23] MEDS: ASPIRIN 81 MG CHEWABLE TABLETS PO SCH (23:02)
[2018-11-24] MEDS: LINEZOLID 600 MG PREMIX BAG 600 MG/300 ML BAG IVPB SCH ×2 (02:53→14:22)
[2018-11-24] MEDS: HEPARIN NA (PORCINE) 5,000 UNITS/ML 1ML VIAL SQ SCH ×2 (06:17→13:46)
[2018-11-24] MEDS: LEVOTHYROXINE NA 75 MCG TABLET (FP) PO SCH (06:17)
[2018-11-24] MEDS: hydrALAZINE HCL 25 MG TABLET (FP) PO SCH ×2 (06:17→13:46)
[2018-11-24] MEDS: DOCUSATE SODIUM 100 MG CAPSULE (FP) PO SCH ×2 (06:17→13:46)
[2018-11-24] MEDS: ACETAMINOPHEN 500 MG TABLET (FP) PO PRN ×2 (06:19→14:48)
[2018-11-24 08:15] LABS: EOS % 4.9 % (0-4.5); HEMATOCRIT 27.4 % (32.4-45.2); HEMOGLOBIN 8.9 GM/dL (10.7-15.3); LYMPH % 30.1 % (8-40); MCHC 32.4 g/dl (32.0-36.0); MEAN CELL VOLUME 80.1 fl (80-96); MEAN PLT VOLUME 8.1 fl (7.5-11.1); MONO % 6.3 % (3.8-10.2); NEUT % 57.7 % (42.8-82.8); PLATELET COUNT 305 K/MM3 (134-434); RBC 3.41 M/mm3 (3.60-5.2); RDW 16.5 % (11.6-15.6); WHITE BLOOD COUNT 7.9 K/mm3 (4.0-10.0)
[2018-11-24 08:48] LABS: ANION GAP 7 MMOL/L (8-16); BLOOD UREA NITROGEN 30 mg/dL (7-18); CALCIUM 9.1 mg/dL (8.5-10.1); CHLORIDE 106 mmol/L (98-107); CO2 26 mmol/L (21-32); CREATININE 1.2 mg/dL (0.55-1.3); GLUCOSE,RANDOM 82 mg/dL (74-106); POTASSIUM 4.8 mmol/L (3.5-5.1); SODIUM 139 mmol/L (136-145)
[2018-11-24] MEDS: ERTAPENEM SODIUM 1 GM in SODIUM CHLORIDE 50 ML IVPB SCH (09:36)
[2018-11-24] MEDS: LOSARTAN POTASSIUM 50 MG TABLET (FP) PO SCH (09:38)
[2018-11-24] MEDS: CHOLECALCIFEROL (VITAMIN D3) 1,000 UNIT TABLET (FP) PO SCH (09:38)
[2018-11-24] MEDS: NIFEdipine E.R. 30 MG TABLET (FP) PO SCH (09:38)
[2018-11-24] MEDS: ASCORBIC ACID 500 MG TABLET (FP) PO SCH (09:38)
[2018-11-24] MEDS: FERROUS SO4 325 MG TABLET (FP) PO SCH (09:38)
[2018-11-24] MEDS: FUROSEMIDE 40 MG TABLET (FP) PO SCH ×2 (09:38→09:49)
[2018-11-24] MEDS: COLLAGENASE CLOSTRIDIUM HIST. 30 GRAMS TUBE TP SCH (09:39)
--- NOTE | 2018-11-24 10:15 | PN ---
Progress Note (short form) - Note Progress Note: Patient with chronic venous wounds which have not improved Vascular duplex results reviewed by Dr. Dougherty. Jose De Jesus compression dressings coupled with strict lower extremity elevation Cont care per Primary Medical Team. No Vascular intervention planned. Above discussed with Dr. Dougherty and agrees.
--- NOTE | 2018-11-24 11:02 | EKG ---
Test Reason : Blood Pressure : / mmHG Vent. Rate : 079 BPM Atrial Rate : 079 BPM P-R Int : 168 ms QRS Dur : 094 ms QT Int : 350 ms P-R-T Axes : 072 022 017 degrees QTc Int : 401 ms SINUS RHYTHM WITH PREMATURE ATRIAL COMPLEXES CANNOT RULE OUT ANTERIOR INFARCT (CITED ON OR BEFORE 16-APR-2018) ABNORMAL ECG WHEN COMPARED WITH ECG OF 16-APR-2018 22:03, NO SIGNIFICANT CHANGE WAS FOUND Confirmed by SÁNCHEZ MCLEAN MD ([id number]) on 11/24/2018 11:02:15 AM Referred By: Confirmed By:SÁNCHEZ MCLEAN MD
--- NOTE | 2018-11-24 13:14 | DS ---
Physical Exam: SUBJECTIVE: Patient seen and examined OBJECTIVE: Vital Signs Period Temp Pulse Resp BP Sys/Lorenzo Pulse Ox Last 24 Hr 97.5 F-98 F 61-69 18-18 128-141/47-69 94-96 PHYSICAL EXAM General: Well Nourished, No Distress HEENT: Atraumatic, Normocephalic, EOM Intact Neck: Supple, Trachea Midline. No: Decreased ROM, Lymphadenopathy Respiratory: Regular, Bilaterally crepts at bases Cardiovascular: Pulse Irregular, S1, S2, no m/g/r Gastrointestinal: Normal Bowel Sounds, Soft, Abdomen, Obese Musculoskeletal: No: Back Pain, Joint Stiffness, Peripheral Pulses: b/l pt has jose de jesus bandage, no swelling. mild edema on dorsum of right foot. Neurological: Alert, Oriented, Cran Nerves II-XII Intact, DERM: Left LE infected ulcers with exudate Labs: LABS Laboratory Results - last 24 hr 11/24/18 11/24/18 06:40 06:40 WBC 7.9 RBC 3.41 L Hgb 8.9 L Hct 27.4 L MCV 80.1 MCH 26.0 MCHC 32.4 RDW 16.5 H Plt Count 305 MPV 8.1 Absolute Neuts (auto) 4.6 Neutrophils % 57.7 Lymphocytes % 30.1 Monocytes % 6.3 Eosinophils % 4.9 H Basophils % 1.0 Nucleated RBC % 0 Sodium 139 Potassium 4.8 Chloride 106 Carbon Dioxide 26 Anion Gap 7 L BUN 30 H Creatinine 1.2 Creat Clearance w eGFR 42.40 Random Glucose 82 Calcium 9.1 Microbiology 11/22/18 10:15 Cellulitis Gram Stain - Final 11/22/18 10:15 Cellulitis Wound Culture - Preliminary Non Lactose Fermenting Gnb Non Lactose Fermenting Gnb#2 Diphtheroid/Corynebacterium Staphylococcus Latex Coag Pos 11/21/18 14:54 Blood - Peripheral Venous Blood Culture - Preliminary NO GROWTH OBTAINED AFTER 48 HOURS, INCUBATION TO CONTINUE FOR 3 DAYS. 11/21/18 15:03 Blood - Peripheral Venous Blood Culture - Preliminary NO GROWTH OBTAINED AFTER 48 HOURS, INCUBATION TO CONTINUE FOR 3 DAYS. HOSPITAL COURSE: 88 y/o female with PMH of HTN, HLD, B/L venous stasis changes, s/p LLE stent and angioplasty (done 6 weeks ago at [facility]) presents to the ED after her nurse noticed increased drainage from LLE wounds today, in addition patient had a low grade fever of 100.4 Patient states that the foot was very painful this morning and she was not even able to put her foot down. her visiting nurse, who comes every other day, noticed that patients foot had more drainage than usual and patient felt warm at home so her daughter called the wound care clinic and was told to bring her in. Of note, she follows with dr dougherty every month. ever since the angoioplasty and stenting patient has had some discomfort. she lives with her daughter and and uses a cane to get around. she denies any fevers or chills no sick contacts or recent travel. In hospital examination and investigations were done. Duplex scan of extremiites were done whch showed patent normal vein flow. Vascular surgery team was consulted and pt was started on Jose De Jesus compression dressings coupled with strict lower extremity elevation. Infectious disease was also consulted and pt blood culture didn't grow any organism and pt has chronic venous ulcer on legs and pt is afebrlie with normal wbc so pt dose not need an antibiotic for now. Pt is strictly advised to use he jose de jesus bandage and keep her legs elevated while siting and lying down. VNS is arranged by social science analyst, they are going to come three times a week. Date of Admission:11/21/18 Date of Discharge: 11/24/18 Minutes to complete discharge: 45 Discharge Summary Reason For Visit: CELLULITIS Current Active Problems Anemia (Acute) Cellulitis (Acute) Condition: Stable - Instructions Diet, Activity, Other Instructions: Follow up wih your Primary car wth in one week Follow up with Dr brumfield vascular surgeon Keep your legs elevated. Jose De Jesus compression dressings coupled with strict lower extremity elevation Take all your medications as you were taking it before. VNS is arranged by social science analyst If you develop fever, chills, increase in swelling of legs, shortness of breath or any other new symptoms please contact doctor or go to hospital Referrals: Edward Guadalupe MD [Primary Care Provider] - 1 Week Khanh Dougherty MD [Staff Physician] - 1 Week Disposition: VNS/HOME HEALTH CARE - Home Medications Comprehensive Discharge Medication List: Ambulatory Orders Cholecalciferol (Vitamin D3) [Vitamin D3 -] 1,000 unit PO DAILY #0 tab 07/02/13 Nifedipine ER [Procardia XL -] 30 mg PO DAILY #0 tab.er.24 07/02/13 Pravastatin Sodium [Pravachol -] 20 mg PO HS #0 tablet 07/02/13 Acetaminophen [Tylenol] 500 mg PO DAILY 05/26/16 Vit A/Vit C/Vit E/Zinc/Copper [Preservision Areds Softgel] 1 each PO DAILY 05/26 Levothyroxine [Synthroid -] 75 mcg PO DAILY@0700 04/09/18 Furosemide [Lasix -] 40 mg PO DAILY 04/16/18 Irbesartan [Avapro (Nf) -] 300 mg PO DAILY 04/16/18 hydrALAZINE HCL [Apresoline -] 25 mg PO TID 04/16/18 Iron 18 mg PO DAILY 04/17/18 Docusate Sodium [Colace -] 100 mg PO TID capsule 04/23/18 Lactobacillus Acidophilus [Bacid -] 1 each PO DAILY #30 capsule 07/29/18 Collagenase Clostridium Hist. [Santyl] 1 applic TP DAILY #90 oint...g. 08/04/18 Ascorbic Acid [Vitamin C -] 500 mg PO DAILY 11/21/18 Aspirin 81 mg PO HS 11/21/18 This patient is new to me today: Yes Date on this admission: 11/26/18 Emergency Visit: Yes ED Registration Date: 11/21/18 Care time: The patient presented to the Emergency Department on the above date and was hospitalized for further evaluation of their emergent condition. Critical Care patient: No - Discharge Referral Referred to [facility] Med P.C.: No
--- NOTE | 2018-11-24 20:09 | PN ---
Teaching Attending Note Name of Resident: Richmond Plata ATTENDING PHYSICIAN STATEMENT I saw and evaluated the patient. I reviewed the resident's note and discussed the case with the resident. I agree with the resident's findings and plan as documented. SUBJECTIVE: Feels okay - no complaints. No fever/chills. OBJECTIVE: Last Vital Signs Temp Pulse Resp BP Pulse Ox 97.9 F 67 20 131/51 L 94 L 11/24/18 18:18 11/24/18 18:18 11/24/18 18:18 11/24/18 18:18 11/24/18 09:00 HEENT - Atraumatic, Normocephalic. Heart - S1, S2, RRR Lungs - good air entry bilaterally Abdomen - Soft/non-tender. Bowel Sounds normal. Extremities - bilateral extremities wrapped with MAUREEN bandage. Neurovascularly intact. Laboratory Results - last 24 hr 11/24/18 11/24/18 06:40 06:40 WBC 7.9 RBC 3.41 L Hgb 8.9 L Hct 27.4 L MCV 80.1 MCH 26.0 MCHC 32.4 RDW 16.5 H Plt Count 305 MPV 8.1 Absolute Neuts (auto) 4.6 Neutrophils % 57.7 Lymphocytes % 30.1 Monocytes % 6.3 Eosinophils % 4.9 H Basophils % 1.0 Nucleated RBC % 0 Sodium 139 Potassium 4.8 Chloride 106 Carbon Dioxide 26 Anion Gap 7 L BUN 30 H Creatinine 1.2 Creat Clearance w eGFR 42.40 Random Glucose 82 Calcium 9.1 Current Medications Generic Name Dose Route Start Last Admin Trade Name Freq PRN Reason Stop Dose Admin Acetaminophen 500 mg 11/22/18 01:12 11/24/18 14:48 Tylenol - PO 500 mg Q6H PRN Administration PAIN LEVEL 1-5 Ascorbic Acid 500 mg 11/22/18 10:00 11/24/18 09:38 Vitamin C - PO 500 mg DAILY JUN Administration Aspirin 81 mg 11/21/18 22:00 11/23/18 23:02 Asa - PO 81 mg HS JUN Administration Atorvastatin Calcium 10 mg 11/21/18 22:00 11/23/18 23:02 Lipitor - PO 10 mg HS JUN Administration Cholecalciferol 1,000 unit 11/22/18 10:00 11/24/18 09:38 Vitamin D3 - PO 1,000 unit DAILY JUN Administration Collagenase 1 applic 11/22/18 10:00 11/24/18 09:39 Santyl - TP 1 applic DAILY JUN Administration Protocol Docusate Sodium 100 mg 11/21/18 22:00 11/24/18 13:46 Colace - PO 100 mg TID UJN Administration Ferrous Sulfate 325 mg 11/22/18 10:00 11/24/18 09:38 Feosol - PO 325 mg DAILY JUN Administration Furosemide 40 mg 11/22/18 10:00 11/24/18 09:49 Lasix - PO Not Given DAILY JUN Heparin Sodium (Porcine) 5,000 unit 11/21/18 22:00 11/24/18 13:46 Heparin - SQ 5,000 unit TID JUN Administration Hydralazine HCl 25 mg 11/21/18 22:00 11/24/18 13:46 Apresoline - PO 25 mg TID JUN Administration Ertapenem 1 gm/ Sodium 50 mls @ 100 mls/hr 11/21/18 20:45 11/24/18 09:36 Chloride IVPB 100 mls/hr DAILY JUN Administration Linezolid 600 mg in 300 mls @ 300 mls/hr 11/22/18 15:00 11/24/18 14:22 Zyvox 600 Mg Premix Bag (Restricted To Id) - IVPB 300 mls/hr Q12H JUN Administration Protocol Levothyroxine Sodium 75 mcg 11/22/18 07:00 11/24/18 06:17 Synthroid - PO 75 mcg DAILY@0700 JUN Administration Losartan Potassium 100 mg 11/22/18 10:00 11/24/18 09:38 Cozaar - PO 100 mg DAILY JUN Administration Nifedipine 30 mg 11/22/18 10:00 11/24/18 09:38 Procardia Xl - PO 30 mg DAILY JUN Administration ASSESSMENT AND PLAN: 88 year old female with history of HTN, HLD, B/L venous stasis changes, PVD s/p LLE stent and angioplasty (done [address] [facility]) presented to the ED with increased drainage from LLE wounds and fever 100.4.. Duplex scan of extremities were done which showed patent stent and venous flow. 1. LE Venous Stasis Dermatitis and Venous Ulcers in setting of PVD s/p recent LLE stent Evaluated by Vascular Surgery - For MAUREEN compression and elevation. Vascular Duplex reviewed by Dr. Dougherty, who does not feel any further vascular intervention is warranted at this time. Started empirically on Ertapenem/Linezolid for possible wound infection. Wound Cx - polymicrobial - felt to be contaminant by ID- and patient was cleared for discharge without Abx therapy. Afebrile, Hemodynamically Stable. Continue daily Lasix. VNS arranged by aids social worker for wound care at home three times per week. 2. HTN - Continue Nifedipine, Cozaar, Hydralazine 3. Hypothyroidism - continue Levothyroxine. 4. HLD - Continue Statin Medically Stable for discharge with regular wound care and PCP and Vascular Sx follow up.
[2018-11-24 23:08] VITALS: BP 142/65; PULSE 66; TEMP 98.3
== END 2018-11-24 10:00 | disposition home health service (06) | DRG 603 ==
LOC: JER 14:23 → JERBED 18:40 → J7W 23:00
PROVIDERS: ADMIT Internal Medicine
DX: L03.116 Cellulitis of left lower limb (principal); N17.9 Acute kidney failure, unspecified; I87.8 Other specified disorders of veins; D64.9 Anemia, unspecified; I10 Essential (primary) hypertension; E66.9 Obesity, unspecified; Z68.33 Body mass index [BMI] 33.0-33.9, adult; E78.5 Hyperlipidemia, unspecified; E03.9 Hypothyroidism, unspecified
CPT/HCPCS: 36415; 71045-TC-FY; 80048; 80053; 81003; 82728; 82803; 83540; 83550; 83605; 83735; 84100; 84484; 85025; 85044; 85610; 85730; 87040; 87070; 87186; 87205; 93005; 93010; 93971-TC; 99284-25; J1644